=== PATIENT | female | born 1960 ===

== ENCOUNTER 2018-08-16 15:42 | Emergency (ER) | payer OTHER, SELFPAY ==
[2018-08-16 15:48] VITALS: BP 129/67; RESP 18; TEMP 97.5
[2018-08-16 16:06] VITALS: PULSE 88; O2SAT 97
--- NOTE | 2018-08-16 16:12 | ED PDOC ---
HPI: CCC, URI, Sore Throat Time Seen by Provider: 08/16/18 15:55 Chief Complaint (Nursing): Flu-like Symptoms Chief Complaint (Provider): Flu-like symptoms History Per: Patient History/Exam Limitations: no limitations Onset/Duration Of Symptoms: Days (2x weeks) Current Symptoms Are (Timing): Still Present Location Of Pain: Throat Associated Symptoms: Sore Throat, Nasal Congestion, Other (bilateral facial pain. (-) shortness of breath, (-) chest pain). denies: Fever, Chills, Cough Ear Symptoms: Bilateral: None Severity: Moderate Additional Complaint(s): 57 year old with no pertinent past medical history presents to the ED for an evaluation of flu-like symptoms. Patient reports that for the past 2x weeks she has been experiencing nasal congestion and a sore throat. For the past 2x days, her congestion has worsened and she developed bodyaches and bilateral facial pain. Patient reports that the facial pain worsens when she bends forward. Patient denies having a cough, fevers, chills, chest pain, shortness of breath, and antipyretic use. PMD: Clinic Past Medical History Reviewed: Historical Data, Nursing Documentation, Vital Signs Vital Signs: Last Vital Signs Temp 97.5 F L 08/16/18 15:44 Pulse 88 08/16/18 16:05 Resp 18 08/16/18 15:44 BP 129/67 08/16/18 15:44 Pulse Ox 97 08/16/18 16:05 COBY Report Viewed: Yes - Medical History PMH: No Chronic Diseases - Family History Family History: States: No Known Family Hx - Social History Alcohol: None Drugs: Denies - Home Medications Home Medications: Ambulatory Orders Medication Instructions Recorded Eye Patch [Opticlude] 1 each MC DAILY #1 each 06/01/17 Polymyxin/Trimethoprim Sulfate 100 drop OD BID #1 bottle 06/01/17 [Polytrim Ophth Soln] predniSONE [predniSONE Tab] 20 mg PO BID #8 tab 06/01/17 Amoxicillin/Potassium Clav 1 each PO BID #20 tablet 08/16/18 [Augmentin 500-125 Tablet] Fluticasone Propionate [Flonase] 2 spr NS DAILY PRN #1 bottle 08/16/18 - Allergies Allergies/Adverse Reactions: Allergies Allergy/AdvReac Type Severity Reaction Status Date / Time No Known Allergies Allergy Verified 06/01/17 12:18 Review of Systems ROS Statement: Except As Marked, All Systems Reviewed And Found Negative Constitutional: Positive for: Other (bodyaches). Negative for: Fever, Chills ENT: Positive for: Nose Congestion, Throat Pain, Other (bilateral facial pain) Cardiovascular: Negative for: Chest Pain Respiratory: Negative for: Cough, Shortness of Breath Physical Exam - Reviewed Nursing Documentation Reviewed: Yes Vital Signs Reviewed: Yes - Physical Exam Appears: Positive for: Well, Non-toxic, No Acute Distress Head Exam: Positive for: ATRAUMATIC, NORMOCEPHALIC Skin: Positive for: Normal Color, Warm, Dry Eye Exam: Positive for: Normal appearance ENT: Positive for: TM Is/Are (non bulging, non erythematous), Other (bilateral malar sinus tenderness). Negative for: Pharyngeal Erythema, Tonsillar Exudate ((-) tonsillar erythema), Tonsillar Swelling Cardiovascular/Chest: Positive for: Regular Rate, Rhythm Respiratory: Positive for: Normal Breath Sounds Neurologic/Psych: Positive for: Alert, Oriented (3x). Negative for: Aphasia, Facial Droop - ECG O2 Sat by Pulse Oximetry: 97 (RA) Pulse Ox Interpretation: Normal Medical Decision Making Medical Decision Makin:55 Initial impression: 57 year old female with flu-like symptoms - Scribe Attestation: Documented Yessenia Nolasco, acting as a scribe for Nino Goldman Provider Scribe Attestation: All medical record entries made by the Scribe were at my direction and personally dictated by me. I have reviewed the chart and agree that the record accurately reflects my personal performance of the history, physical exam, medical decision making, and the department course for this patient. I have also personally directed, reviewed, and agree with the discharge instructions and disposition. Disposition - Clinical Impression Clinical Impression: Acute sinusitis - Patient ED Disposition Is Patient to be Admitted: No - Disposition Referrals: [facility] [Outside] Disposition: Routine/Home Disposition Time: 16:10 Condition: STABLE Additional Instructions: FOLLOW UP WITH YOUR DOCTOR FOR FURTHER EVALUATION RETURN TO ED IMMEDIATELY IF SYMPTOMS WORSEN KRYSTLE YANCEY, thank you for letting us take care of you today. Your provider was Francis Urrutia MD and you were treated for CONGESTION. The emergency medical care you received today was directed at your acute symptoms. If you were prescribed any medication, please fill it and take as directed. It may take several days for your symptoms to resolve. Return to the Emergency Department if your symptoms worsen, do not improve, or if you have any other problems. Please contact your doctor or call one of the physicians/clinics you have been referred to that are listed on the Patient Visit Information form that is included in your discharge packet. Bring any paperwork you were given at discharge with you along with any medications you are taking to your follow up visit. Our treatment cannot replace ongoing medical care by a primary care provider outside of the emergency department. Thank you for allowing the [facility] team to be part of your care today. If you had an X-Ray or CT scan: A Radiologist will review the ED reading if any change in treatment is needed we will contact you. If you had a blood, urine, or wound culture: It will take several days for the results, if any change in treatment is needed we will contact you. If you had an STI test: It will take 48 hours for the results. Please call after 1 week if you have not heard back. Prescriptions: Amoxicillin/Potassium Clav [Augmentin 500-125 Tablet] 1 each PO BID #20 tablet Fluticasone Propionate [Flonase] 2 spr NS DAILY PRN #1 bottle PRN Reason: Allergy Symptoms Instructions: Sinusitis, Adult (DC) Forms: [facility] ([place]ian)
== END 2018-08-16 16:34 | disposition home or self-care (01) ==
LOC: H.ER 15:42
DX: J01.90 Acute sinusitis, unspecified (principal)